=== PATIENT | male | born 1975 | race Caucasian/White ===

== ENCOUNTER → 2019-03-03 09:39 | Outpatient (CLI) | payer OTHER, SELFPAY ==
[2019-03-03 10:25] LABS: Add Manual Diff / Slide Review NO; Basophils Absolute Auto 0 /uL (0-100); Basophils Percent Auto 0.4 % (0-2); Eosinophils Absolute Auto 200 /uL (0-450); Eosinophils Percent Auto 2.4 % (2-4); Hematocrit 48.2 % (41-53); Hemoglobin 16.9 g/dL (13.5-17.5); Lymphocytes Absolute Auto 1500 /uL (1100-4500); Lymphocytes Percent Auto 16.4 % (25-40); Mean Corpuscular Volume 94.2 fL (80-100); Monocytes Absolute Auto 900 /uL (0-900); Monocytes Percent Auto 10.2 % (3-14); Neutrophils Absolute Auto 6400 /uL (1500-7000); Neutrophils Percent Auto 70.6 % (50-75); Platelet Count 263 X10^3/uL (150-400); Red Blood Cell Count 5.12 X10^6/uL (4.5-5.9); Red Cell Distribution Width 13.1 % (11.6-14.8)
[2019-03-03 10:58] LABS: Cholesterol 257 mg/dL (140-199); Glucose 98 mg/dL (70-100); HDL Cholesterol 56 mg/dL (40-60); LDL Cholesterol Calculated 164 mg/dL (<100); Triglycerides 186 mg/dL (35-150)
== END ==
PROVIDERS: PCP Internal Medicine; Visit Provider Internal Medicine
DX: N40.1 Benign prostatic hyperplasia with lower urinary tract symptoms (principal); N13.8 Other obstructive and reflux uropathy; K64.4 Residual hemorrhoidal skin tags; Z00.01 Encounter for general adult medical examination with abnormal findings
CPT/HCPCS: 36415; 80061; 82947; 85025; G0103